=== PATIENT | male | born 2000 | race Asian ===

== ENCOUNTER 2018-04-03 23:58 | Emergency (ER) | payer SELFPAY ==
[2018-04-04] MEDS ORDERED: Lidocaine 1% MPF wEPI 200,000* 30 ML SDV INJ ONE (00:27)
[2018-04-04] MEDS ORDERED: Lidocaine 2% EPI 1:200000 MPF*10-20 ML VIAL ONE (00:33)
[2018-04-04] MEDS ORDERED: Cephalexin CAP* 500 MG PO ONE (01:23)
--- NOTE | 2018-04-04 01:23 | ED ---
Laceration/Wound HPI - HPI Summary HPI Summary: 17 male presents with laceration to left wrist today. He states that he was leaning on a window when the window broke. He states the glass cut his wrist. He is unsure if there is any foreign body. He states that the area continues to bleed. He was occasional numbness into his left ring finger only. Denies any other injury. Has full range of motion of wrist. immunizations up-to- date. Has no medical conditions. is right handed and student at [employer]. - History of Current Complaint Stated Complaint: LT WRIST INJURY Time Seen by Provider: 04/04/18 00:25 Pain Intensity: 7 PMH/Surg Hx/FS Hx/Imm Hx Endocrine/Hematology History: Denies: Hx Anticoagulant Therapy Cardiovascular History: Denies: Hx Myocardial Infarction Infectious Disease History: No Infectious Disease History: Denies: Traveled Outside the [place] in Last 30 Days - Family History Known Family History: Negative: Diabetes - Social History Alcohol Use: None Substance Use Type: Reports: None Smoking Status (MU): Never Smoked Tobacco Review of Systems Negative: Fever Negative: Chest Pain Negative: Shortness Of Breath Positive: Other - left wrist laceration All Other Systems Reviewed And Are Negative: Yes Physical Exam Triage Information Reviewed: Yes Vital Signs On Initial Exam: Initial Vitals Temp Pulse Resp BP Pulse Ox 98.6 F 78 16 117/74 96 04/04/18 00:20 04/04/18 00:20 04/04/18 00:20 04/04/18 00:20 04/04/18 00:20 Vital Signs Reviewed: Yes Appearance: Positive: Well-Appearing Skin: Positive: Warm, Dry, Other - 5cm by 1 1/2cm by 1/2cm laceration on left wrist Head/Face: Positive: Normal Head/Face Inspection Eyes: Positive: Normal, Conjunctiva Clear ENT: Positive: Pharynx normal Respiratory/Lung Sounds: Positive: Clear to Auscultation, Breath Sounds Present Cardiovascular: Positive: Normal, RRR Musculoskeletal: Positive: Strength/ROM Intact - left wrist, Other - good pulses , capillary refill<2 secs, sensation grossly intact Neurological: Positive: Normal Psychiatric: Positive: Normal Procedures - Laceration/Wound Repair 1 Location: Other - left wrist Description: Irregular Anesthesia: Local, 1.0%, Epi Length, Depth and Shape: 5cm by 1 1/2cm by 1/2cm Irrigated w/ Saline (ccs): 500 Laceration/Wound Explored: no foreign body removed Closure: Single Layer Suture Type: Prolene - 4-0 Number of Sutures: 13 Layer Closure?: No Sterile Dressing Applied?: Yes - telfa and preston Diagnostics - Vital Signs Vital Signs Temp Pulse Resp BP Pulse Ox 04/04/18 00:20 98.6 F 78 16 117/74 96 - Laboratory Lab Statement: Any lab studies that have been ordered have been reviewed, and results considered in the medical decision making process. Laceration Repair Course/Dx - Course Course Of Treatment: 17 male presents with laceration to left wrist today. He states that he was leaning on a window when the window broke. He states the glass cut his wrist. He is unsure if there is any foreign body. He states that the area continues to bleed. He was occasional numbness into his left ring finger only. Denies any other injury. Has full range of motion of wrist. immunizations up-to-date. Has no medical conditions. is right handed and student at [employer]. On exam has 5 cm x 0.5 cm laceration of left wrist. Does not appear to be any tendon involvement. Has full range of motion. Neurovascular intact. Clean area and placed [address] on Keflex due to the extensiveness of laceration. Told to keep the [place] on the area. gave ortho referral if parasethesia persist. Patient understands agrees with plan. - Differential Dx Differental Diagnoses: Abrasion, Avulsion, Laceration - Clinical Impression Provider Diagnoses: Laceration of left wrist Discharge - Sign-Out/Discharge Documenting (check all that apply): Patient Departure - Discharge Plan Condition: Good Disposition: HOME Prescriptions: Cephalexin CAP* [Keflex CAP*] 500 mg PO BID #9 cap Patient Education Materials: Care For Your Stitches (ED) Referrals: No Primary Care Phys,NOPCP [Primary Care Provider] - Mratha Hunt MD [Medical Doctor] - Additional Instructions: Take Tylenol or ibuprofen for pain every 6 hours Keep area clean and dry for 24 hours Take keflex twice a day for 5 days Return to ED or primary in 10-14 days to have sutures removed follow up with ortho if needed Return to ED if develop signs of infection such as fever, spreading redness, or pus. - Billing Disposition and Condition Condition: GOOD Disposition: Home
[2018-04-04 01:55] VITALS: BP 130/64
== END 2018-04-04 01:54 | disposition home or self-care (01) ==
LOC: ED 23:58
DX: S61.512A Laceration without foreign body of left wrist, initial encounter (principal); W25.XXXA Contact with sharp glass, initial encounter; Y92.9 Unspecified place or not applicable
CPT/HCPCS: 12002; 99282; A9270-GY; J2001